=== PATIENT | female | born 1955 | race Asian ===

== ENCOUNTER 2016-11-07 11:11 | Inpatient (IN) | payer MEDICAID ==
[~2016-11-07] VITALS: Ht 154.9 cm; Wt 58.3 kg
--- NOTE | 2016-11-07 11:15 | NUR ---
PT BIB GUEST LAUNDRY ATTENDANT TO ER BED 14. WAS RECENTLY DISCHARGE AT [facility]. GUEST LAUNDRY ATTENDANT NOT COMFORTABLE LEAVING PT AT HOME SINCE PT LEAVES ALONE AND IS UNABLE TO TAKE CARE OF SELF. VSS. AWAITING MD HYDE.
--- NOTE | 2016-11-07 12:20 | NUR ---
PT TO RADIOLOGY FOR HEAD CT SCAN VIA WHEELCHAIR.
[2016-11-07] MEDS ORDERED: IV NS 0.9% 1,000 ML BAG IV ONE (12:30)
[2016-11-07 12:44] LABS: BASOPHILS # (AUTO) 0.1 /CMM (0.0-0.2); BASOPHILS % (AUTO) 0.8 % (0.0-2.0); EOSINOPHILS # (AUTO) 0.1 /CMM (0.0-0.7); EOSINOPHILS % (AUTO) 1.2 % (0.0-6.0); HEMATOCRIT 42 % (33-45); HEMOGLOBIN 14.1 g/dL (11.5-14.8); LYMPHOCYTES # (AUTO) 1.4 /CMM (0.8-4.8); LYMPHOCYTES % (AUTO) 19.7 % (20.0-44.0); MEAN CORPUSCULAR HEMOGLOBIN 29 PG (26.0-33.0); MEAN CORPUSCULAR HGB CONC 33 g/dl (31.0-36.0); MEAN CORPUSCULAR VOLUME 88 fL (82-100); MONOCYTES # (AUTO) 0.3 /CMM (0.1-1.30); NEUTROPHILS % (AUTO) 73.3 % (43.0-81.0); PLATELET COUNT (AUTO) 376 /CMM (150-450); RED BLOOD CELL COUNT(AUTO) 4.83 MIL/uL (4.0-5.2); WHITE BLOOD COUNT (AUTO) 6.9 K/uL (4.3-11.0)
[2016-11-07 12:57] LABS: INR 0.96 (0.87-1.13)
[2016-11-07 13:00] LABS: ALANINE AMINOTRANSFERASE 17 U/L (12-78); ALBUMIN 3.5 g/dL (3.4-5.0); ALKALINE PHOSPHATASE 69 U/L (46-116); ASPARTATE AMINOTRANSFERASE 17 U/L (15-37); BILIRUBIN,DIRECT 0.1 mg/dL (0.0-0.2); BILIRUBIN,TOTAL 0.5 mg/dL (0.2-1.0); CALCIUM, SERUM 9.1 mg/dL (8.5-10.1); CARBON DIOXIDE 27 mmol/L (21-32); CHLORIDE 102 mmol/L (98-107); CREATININE 0.7 mg/dL (0.6-1.3); GLUCOSE 134 mg/dL (74-106); POTASSIUM 4.1 mmol/L (3.5-5.1); SODIUM SERUM 138 mmol/L (136-145); TOTAL PROTEIN, SERUM 7.5 g/dL (6.4-8.2); UREA NITROGEN, BLOOD 18 mg/dL (7-18)
[2016-11-07 13:02] LABS: ALCOHOL, BLOOD < 3 mg/dL (0-0); TROPONIN I < 0.017 ng/mL (0.00-0.056)
--- NOTE | 2016-11-07 13:13 | NUR ---
dr. ball at bedside
[2016-11-07] MEDS ORDERED: OLANZAPINE 10 MG VIAL IM ONE (13:46)
--- NOTE | 2016-11-07 13:50 | NUR ---
pt is agitated trying to pull out iv. dr ball made aware. zyprexia 10mg im given. lt thigh per ermd verbal order.
[2016-11-07 14:12] LABS: THYROID STIMULATING HORMONE 0.888 uIU/mL (0.358-3.74)
[2016-11-07 14:16] LABS: BILIRUBIN,URINE Negative (NEGATIVE); BLOOD, URINE Large Ery/uL (NEGATIVE); COLOR,URINE Yellow (YELLOW); KETONES,URINE Negative (NEGATIVE); LEUKOCYTE ESTERASE ,URINE Negative (NEGATIVE); NITRITE, URINE Negative (NEGATIVE); PROTEIN,URINE Negative (NEGATIVE); UGLUCOSE Negative (NEGATIVE); UROBILINOGEN,URINE 0.2 EU/dL (0.2)
[2016-11-07 14:21] LABS: APPEARANCE,URINE Hazy (CLEAR)
--- NOTE | 2016-11-07 14:25 | NUR ---
CALLED ART GREENS CUTTER, HE SAID HE WOULD COME.
[2016-11-07 14:26] LABS: BACTERIA,URINE None seen /HPF (None Seen); RBC,URINE 21-50 /HPF (0-2); SQUAMOUS EPITHELIAL CELL,UR Few /HPF (None Seen); URINE AMORPHOUS PHOSPHATES Few /HPF (None Seen); WBC,URINE 0-3 /HPF (0-3)
--- NOTE | 2016-11-07 14:56 | NUR ---
ART CHEMISTRY LABORATORY TECHNICIAN AT BEDSIDE FOR EVAL.
--- NOTE | 2016-11-07 15:56 | NUR ---
CALLED [employer] INDUSTRIAL ROOFER WAS PAGED.
--- NOTE | 2016-11-07 16:46 | NUR ---
REPORT GIVEN TO ORQUIDEA. PT AWAITING TRANSFER TO FLOOR.
--- NOTE | 2016-11-07 16:52 | NUR ---
REPORT RECEIVED FROM ER
--- NOTE | 2016-11-07 17:25 | NUR ---
PATIENT ARRIVED TO UNIT
--- NOTE | 2016-11-07 17:45 | NUR ---
DR MATHEW NOTIFIED THAT PATIENT ARRIVED TO UNIT. WAITING MD ORDERS
[2016-11-07 18:02] VITALS: BP 118/75
--- NOTE | 2016-11-07 18:03 | NUR ---
PATIENT REMOVED HER IV
--- NOTE | 2016-11-07 18:04 | NUR ---
RN ADMITTING NOTES PATIENT ARRIVED TO UNIT VIA A WHEELCHAIR. PATIENT WAS CLEANED AND DRESSED WITH A GOWN. 1:1 SITTER FOR SAFETY. BELONGING LIST COMPLETED. VITAL SINGS WNL, REFER TO VITAL SIGN FLOWCHART. NO SIGNS AND SYMPTOMS OF DISTRESS. PATIENT PULLED OUT HER IV. WILL ATTEMPT TO START A NEW IV SITE. PATIENT IS MUMBLING WORD AND GARBLED. DISORGANIZED SPEECH. UNABLE TO OBTAIN HISTORY FROM PATIENT. I TRIED TO GET A HOLD OF THE ACCOUNTING SOFTWARE SPECIALIST THAT BROUGHT THE PATIENT TO THE HOSPITAL BUT SHE DIDN'T ANSER: MIRTA BAR AT [phone]. WILL ENDORSE TO HOSPICE PLAN ADMINISTRATOR NURSE.
--- NOTE | 2016-11-07 18:23 | NUR ---
NEW IV STARTED. RIGHT FOREARM 22G.
--- NOTE | 2016-11-07 18:23 | NUR ---
PICTURES WERE TAKEN FROM HER FEET. PATIENT REFUSED TO REMOVE UNDERWEAR AND SKIRT. UNABLE TO ASSESS BUTTOCKS AND SACRAL AREA
[2016-11-07] MEDS ORDERED: ACETAMINOPHEN 325 MG TABLET PO PRN (18:30)
[2016-11-07] MEDS ORDERED: ONDANSETRON HCL/PF 4 MG/2 ML VIAL IVP PRN (18:30)
[2016-11-07] MEDS ORDERED: MAGNESIUM HYDROXIDE 30 ML UDC PO PRN (18:30)
[2016-11-07] MEDS ORDERED: MAG HYDROX/AL HYDROX/SIMETH 30 ML UDC PO PRN (18:30)
[2016-11-07] MEDS ORDERED: Z GUARD REMEDY 2 OZ OINT TP PRN (18:30)
[2016-11-07] MEDS: IV NS 0.9% 1,000 ML IV PRN (18:49)
--- NOTE | 2016-11-07 19:18 | NUR ---
RN CLOSING NOTES ENDORSED TO TRIMMING ASSEMBLER NURSE FOR NORI. PATIENT IS IN BED, ALERT AND ORIENTED TO SELF ONLY. 1:1 SITTER AT BEDSIDE FOR SAFETY. IV SITE IS PATENT AND INTACT, CURRENTLY RUNNING FLUID AT 75ML/HR. ALL NURSING CARE PROVIDED. PATIENT KEPT CLEAN AND DRY. BED IN LOW POSITION, LOCKED AND TWO SIDE RAILS ARE UP. CALL LIGHT IS WITHIN REACH. NO SIGNS AND SYMPTOMS OF DISTRESS. DENIED PAIN.
--- NOTE | 2016-11-07 19:30 | NUR ---
MS RN NOTE RECEIVED PATIENT ASLEEP IN BED. EASILY AROUSABLE. NO RESPIRATORY DISTRESS OR SOB NOTED. NO S/S OF PAIN OR DISCOMFORT. IV SITE TO RFA INTACT WITH FLUIDS RUNNING ORDERED. WILL CALL [facility] FOR MEDS. BED LOCKED AND IN LOWEST POSITION, SIDE RAILS UP, CALL LIGHT WITHIN REACH. WILL CONTINUE TO MONITOR.
--- NOTE | 2016-11-07 19:37 | NUR ---
MS RN NOTE CALLED [facility] FOR PATIENTS MEDS. UNABLE TO OBTAIN AT THIS TIME. WAS TOLD TO CALL BACK IN AM.
[2016-11-07 20:00] VITALS: BP 119/61
--- NOTE | 2016-11-08 06:12 | NUR ---
MS RN NOTE PATIENT STABLE. ASLEEP IN BED. NO RESPIRATORY DISTRESS OR SOB NOTED. NO S/S OF PAIN OR DISCOMFORT. ALL NEEDS MET AND ATTENDED TO. WILL ENDORSE TO DAY SHIFT FOR NORI.
[2016-11-08 06:49] LABS: BASOPHILS % (AUTO) 0.5 % (0.0-2.0); EOSINOPHILS # (AUTO) 0.2 /CMM (0.0-0.7); EOSINOPHILS % (AUTO) 2.9 % (0.0-6.0); HEMATOCRIT 40 % (33-45); HEMOGLOBIN 12.9 g/dL (11.5-14.8); LYMPHOCYTES # (AUTO) 1.3 /CMM (0.8-4.8); LYMPHOCYTES % (AUTO) 22.6 % (20.0-44.0); MEAN CORPUSCULAR HEMOGLOBIN 29 PG (26.0-33.0); MEAN CORPUSCULAR HGB CONC 32 g/dl (31.0-36.0); MEAN CORPUSCULAR VOLUME 90 fL (82-100); MONOCYTES # (AUTO) 0.4 /CMM (0.1-1.30); MONOCYTES % (AUTO) 7.6 % (2.0-12.0); NEUTROPHILS # (AUTO) 3.8 /CMM (1.8-8.9); NEUTROPHILS % (AUTO) 66.4 % (43.0-81.0); PLATELET COUNT (AUTO) 310 /CMM (150-450); RDW COEFFICIENT OF VARIATION 13.8 (11.5-15.0); RED BLOOD CELL COUNT(AUTO) 4.49 MIL/uL (4.0-5.2); WHITE BLOOD COUNT (AUTO) 5.7 K/uL (4.3-11.0)
--- NOTE | 2016-11-08 07:15 | NUR ---
RN NOTES PT IS IN BED, SLEEPING COMFORTABLY. PT ON RA, RESPIRATIONS ARE EVEN AND UNLABORED. IV ON RFA INTACT AND PATENT, RUNNING NS @75 ML/HR. SAFETY MEASURES ARE IN PLACE. CALL LIGHT IS IN REACH. WILL CONTINUE TO MONITOR.
[2016-11-08 07:28] LABS: CALCIUM, SERUM 8.3 mg/dL (8.5-10.1); CREATININE 0.5 mg/dL (0.6-1.3); MAGNESIUM 2.3 mg/dL (1.8-2.4); PHOSPHORUS 3.5 mg/dL (2.5-4.9); POTASSIUM 3.9 mmol/L (3.5-5.1); THYROID STIMULATING HORMONE 1.055 uIU/mL (0.358-3.74)
[2016-11-08] MEDS: PANTOPRAZOLE 40 MG TABLET.DR PO SCH (07:51)
[2016-11-08] MEDS: IV NS 0.9% 1,000 ML IV PRN ×2 (07:53→22:54)
[2016-11-08 08:00] VITALS: BP 125/69
--- NOTE | 2016-11-08 10:58 | NUR ---
RADHA and guest services associate met with pt. bedside. Pt. is alert and oriented x1. Pt. appears confused, has disorganized thoughts and is unable to provide much information regarding her address. Pt. does state that her parents reside in [facility] and she hates her mom. Per crisis medical billing and coding instructor Bryn Rodriguez's notes dated 11/07/16, , pt. has a lining caser Dayana GENAO from [facility] [place] cell [phone]. Patient was discharged from [facility] psychiatric today after a two week stay. Patient appears to have a history of Schizophrenia and possibly dementia. Patient lives alone on subsidized housing in [place] but is unable to provide any address. Psychiatrist Dr. Ley assessed patient,and will provide psychiatric stabilization by administrating appropriate psychiatric medication. RADHA left a voicemail message for pt's lining caser Dayana Stevens [phone] requesting a call back.
[2016-11-08] MEDS: BENZTROPINE MESYLATE (1 MG) 1 MG TABLET PO SCH ×2 (11:05→16:14)
[2016-11-08] MEDS: risperiDONE 1 MG TABLET PO SCH ×2 (11:05→16:14)
[2016-11-08 16:00] VITALS: BP 118/76
--- NOTE | 2016-11-08 19:20 | NUR ---
RN NOTES PT IS SITTING ON THE EDGE OF THE BED. PT ON RA, RESPIRATIONS ARE EVEN AND UNLABORED. IV WAS PULLED ON AT 1650. ALL MEDS WERE GIVEN ORDERED. SAFETY MEASURES ARE IN PLACE, CALL LIGHT IS IN REACH. WILL ENDORSE TO REGULATORY TECHNICIAN RN FOR CONTINUITY OF CARE.
--- NOTE | 2016-11-08 19:30 | NUR ---
MS RN NOTES RECEIVED LAYING COMFORTABLY ON BED,A/O X 1,CONFUSED,PULLED OUT HER IV.SITTER AT BEDSIDE.WILL CONTINUE TO MONITOR STATUS.
--- NOTE | 2016-11-08 19:45 | NUR ---
MS RN NOTES NEW IV ACCESS PLACE ON RIGHT WRIST # 22,NS AT 75 ML/HR RATE CONTINUE INFUSING ORDERED.
[2016-11-08 20:00] VITALS: BP 110/70
[2016-11-08 20:08] VITALS: BP 110/70
--- NOTE | 2016-11-09 06:14 | NUR ---
MS RN NOTES A/O X1,CONFUSED,TRIED TO PULL OUT IV TUBING,SITTER AT BEDSIDE,NOTED UTERINE PROLAPSED.IVF INFUSING.NO FALL/INJURY NOTED.WILL ENDORSE TO DAY NURSE FOR NORI.
--- NOTE | 2016-11-09 07:20 | NUR ---
RN NOTES PT IS AWAKE IN BED, RESTING COMFORTABLY WITH SITTER AT BEDSIDE. PT ON RA, RESPIRATIONS ARE EVEN AND UNLABORED. IV ON RIGHT WRIST, INTACT AND RUNNING NS @ 75ML/HR. SAFETY MEASURES ARE IN PLACE, CALL LIGHT IS IN REACH. WILL CONTINUE TO MONITOR.
[2016-11-09 08:00] VITALS: BP 137/90
[2016-11-09] MEDS: risperiDONE 1 MG TABLET PO SCH ×2 (08:19→16:13)
[2016-11-09] MEDS: BENZTROPINE MESYLATE (1 MG) 1 MG TABLET PO SCH ×2 (08:20→16:13)
[2016-11-09] MEDS: PANTOPRAZOLE 40 MG TABLET.DR PO SCH (08:20)
[2016-11-09] MEDS ORDERED: risperiDONE 1 MG TABLET PO ONE (10:30)
[2016-11-09] MEDS ORDERED: risperiDONE 1 MG TABLET ONE (10:39)
[2016-11-09] MEDS: IV NS 0.9% 1,000 ML IV PRN (15:03)
[2016-11-09 16:00] VITALS: BP 135/80
--- NOTE | 2016-11-09 19:24 | NUR ---
RN NOTES PT IS RESTING IN BED WITH SITTER AT BEDSIDE. PT ON RA, RESPIRATIONS ARE EVEN AND UNLABORED. IV ON RIGHT WRIST, INTACT AND PATENT, RUNNING NS @ 75ML/HR. ALL MEDS WERE GIVEN ORDERED. SKIN CARE PROVIDED. AMBULATED IN THE HALLWAY WITH SITTER. SAFETY MEASURES ARE IN PLACE, CALL LIGHT IS IN REACH. WILL ENDORSE TO TAPE FASTENER MACHINE OPERATOR RN FOR CONTINUITY OF CARE.
[2016-11-09 20:00] VITALS: BP 126/80
[2016-11-09] MEDS: ZOLPIDEM TARTRATE 5 MG TABLET PO PRN (22:29)
--- NOTE | 2016-11-10 06:29 | NUR ---
MS RN NOTES AWAKE & RESPONSIVE. NOT IN ANY DISTRESS. NO SOB NOTED. DENIES ANY PAIN OR DISCOMFORT AT THIS TIME. WITH IVF INFUSING WELL. AM CARE DONE. MONITORED ACCORDINGLY. CALL LIGHT WITHIN REACH. BED IN LOWEST POSITION. SR UP X 3 WITH BED ALARM ON FOR SAFETY. WILL ENDORSE TO NEXT SHIFT.
--- NOTE | 2016-11-10 07:15 | NUR ---
RN NOTES REPORT RECEIVED AT THE BEDSIDE. PATIENT IS SLEEPING. NO SOB OR DISTRESS NOTED AT THIS TIME. PATIENT DOES NOT APPEAR TO BE IN PAIN, NO FACIAL GRIMACE NOTED. PATIENT HAS BEEN REFUSING IV FLUIDS. BED IN A LOW POSITION, CALL LIGHT WITHIN PATIENT REACH, SITTER IS AT THE BEDSIDE, WILL CONTINUE TO MONITOR.
[2016-11-10 08:00] VITALS: BP 136/89
[2016-11-10] MEDS: risperiDONE 1 MG TABLET PO SCH ×4 (08:41→16:28)
[2016-11-10] MEDS: PANTOPRAZOLE 40 MG TABLET.DR PO SCH (08:42)
[2016-11-10] MEDS: BENZTROPINE MESYLATE (1 MG) 1 MG TABLET PO SCH ×2 (08:42→16:28)
--- NOTE | 2016-11-10 13:13 | NUR ---
RN NOTES HAD TO WASTE 1300 RISPERDAL. PATIENT REFUSED TO TAKE MEDICATION. PATIENT ALSO STILL REFUSING IV FLUIDS. WILL ATTEMPT AGAIN LATER.
[2016-11-10] MEDS ORDERED: RISP1TAB7 PO (13:41)
[2016-11-10 16:00] VITALS: BP 130/76
--- NOTE | 2016-11-10 18:59 | NUR ---
RN CLOSING NOTES NO SIGNIFICANT CHANGES IN PATIENT CONDITION THROUGHOUT THE SHIFT. NO SOB OR DISTRESS NOTED AT THIS TIME. PATIENT DENIES PAIN. FROM [facility], PATIENT TO BE DISCHARGED TOMORROW. BED IN A LOW POSITION, CALL LIGHT WITHIN PATIENT REACH, FAMILY AT THE BEDSIDE. WILL ENDORSE FOR NORI. Addendum: 11/10/16 at 1901 by RED PRINCE RN PATIENT REFUSED IV FLUIDS THROUGHOUT THE SHIFT. ORAL INTAKE GOOD.
[2016-11-10 20:00] VITALS: BP 125/76
--- NOTE | 2016-11-11 06:50 | NUR ---
MS RN NOTES AWAKE & RESPONSIVE. NOT IN ANY DISTRESS. NO SOB NOTED. DENIES ANY PAIN OR DISCOMFORT AT THIS TIME. PT REFUSING TO HAVE IV-HL. AM CARE DONE. MONITORED ACCORDINGLY. CALL LIGHT WITHIN REACH. BED IN LOWEST POSITION. SR UP X 3 WITH BED ALARM ON FOR SAFETY. WILL ENDORSE TO NEXT SHIFT.
[2016-11-11] MEDS: risperiDONE 1 MG TABLET PO SCH ×4 (08:24→22:00)
[2016-11-11] MEDS: BENZTROPINE MESYLATE (1 MG) 1 MG TABLET PO SCH ×2 (08:25→16:31)
[2016-11-11] MEDS: PANTOPRAZOLE 40 MG TABLET.DR PO SCH (08:25)
--- NOTE | 2016-11-11 08:31 | NUR ---
MS RN NOTES PT RECEIVED STABLE. NO APPARENT DISTRESS. PT IS RELAXED AND EATING BREAKFAST. BEDSIDE RAILS ARE LOWERED AND LOCKED. BEDSIDE RAILS ARE UP X2. WILL CONTINUE TO MONITOR.
--- NOTE | 2016-11-11 10:00 | NUR ---
MS RN NOTES PATIENT IS REFUSING IV FLUIDS. EDUCATED PATIENT FORGETFUL.
--- NOTE | 2016-11-11 12:14 | NUR ---
RADHA received a voicemail message from Essence watch caser at [facility] stating that they would like to work together with [facility] and [facility] to get pt. the needed care. RADHA informed watch caser Jose Manuel regarding Nila's phone call. Jose Manuel called Nila and left her a voicemail message requesting a call back.
--- NOTE | 2016-11-11 12:30 | NUR ---
MS RN NOTES ANOTHER MESSAGE TO CASE MANAGEMENT TO F.U ON DC PLANNING. NOTIFIED DR PORTER PENDING ANSWER FROM CM
--- NOTE | 2016-11-11 13:00 | NUR ---
MS RN NOTES NOTIFIED MD PATIENT APPEARS TO BE RESPONDING TO INTERNAL STIMULI AND TALKING ABOUT A BABY FAUN. MD AWARE NO NEW ORDERS AT THIS TIME
--- NOTE | 2016-11-11 15:00 | NUR ---
MS RN NOTES PATIENT IS REFUSING IV FLUIDS. EDUCATED PATIENT FORGETFUL.
--- NOTE | 2016-11-11 15:42 | NUR ---
MS RN NOTES SPOKE WITH MAHESH BEATER MACHINE OPERATOR AND HE UPDATED FACILITY WILL NOT ACCEPT PATIENT AND THEY WILL TRY ANOTHER. FOR NOW PATIENT WILL STAY. AWARE
--- NOTE | 2016-11-11 19:24 | NUR ---
MS RN CLOSING NOTES PATIENT IS RESTING IN BED. BEDSIDE RAILS ARE UP X2. BED IS LOCKED AND LOWERED. WILL ENDORSE CARE TO MANAGER PARTY NURSE FOR NORI.
--- NOTE | 2016-11-11 19:30 | NUR ---
MS RN OPENING NOTES: PATIENT IN BED, AOX1, CONFUSED. ON ROOM AIR, BREATHING EVEN AND UNLABORED. BREATH SOUDNS CLEAR TO AUSCULTATION. APPEARS CALM AND IN NO DISTRESS. NO IV ACCESS AT THIS TIME, WHEN ASKED IF IT IS OK TO HAVE A KYLAH[HERAL IV INSERTED, PATIENT WAS UNABLE TO ANSWER CORRECTLY, BUT ASKED FOR A GLOVE. PROVIDED FOR COMFORT AND SAFETY. BED IN LOWEST AND LOCKED POSITION, SIDERAILS UPX3. SITTER AT BEDSIDE. WILL CONT TO MONITOR
[2016-11-11 20:00] VITALS: BP 128/75
--- NOTE | 2016-11-11 22:00 | NUR ---
RN NOTES: UNABLE TO ADMINISTER PO RISPERDAL. PATIENT IS ASLEEP.
--- NOTE | 2016-11-12 06:27 | NUR ---
RN NOTES: PATIENT AGREED TO HAVE IV REINSERTED BY RAMSEY AGARWAL. NEW IV INSERTED AT LFA G22. RESTARTED IV FLUIDS.
--- NOTE | 2016-11-12 06:55 | NUR ---
MS RN CLOSING NOTES: PATIENT IN BED, AOX1, ON ROOM AIR, BREATHING EVEN AND UNLABORED. APPEARS CALM AND IN NO DISTRESS. WAS ABLE TO SLEEP WELL THROUGH NIGHT. PIV OVER LFA G22 INTACT AND INFUSING WELL WITH NS RUNNING AT 75 ML/HR. NO ACUTE CHANGE IN CONDITION NOTED THROUGH NIGHT. PROVIDED FOR COMFORT AND SAFETY. BED IN LOWEST AND LOCKED POSITION, SIDERAILS UPX3. BED ALARMS ON, SITTER AT BEDSIDE. WILL ENDORSE TO AM RN FOR NORI.
--- NOTE | 2016-11-12 07:05 | NUR ---
RN Initial Notes: Patient resting in bed. Patient alert oriented x1.Non-labored breathing noted on room air. No facial grimaces noted. IV site on LFA gauge 22 patent and intact. Bed in lowest locked position. Call light within reach. Sitter at bed side. Will continue to monitor.
[2016-11-12 08:00] VITALS: BP 119/79
[2016-11-12] MEDS: PANTOPRAZOLE 40 MG TABLET.DR PO SCH (08:16)
[2016-11-12] MEDS: MEMANTINE HCL 5 MG TABLET PO SCH ×2 (08:17→16:50)
[2016-11-12] MEDS: risperiDONE 1 MG TABLET PO SCH ×4 (08:17→21:23)
[2016-11-12] MEDS: BENZTROPINE MESYLATE (1 MG) 1 MG TABLET PO SCH ×2 (08:18→16:52)
[2016-11-12] MEDS: IV NS 0.9% 1,000 ML IV PRN ×2 (13:23→14:55)
[2016-11-12 16:00] VITALS: BP 136/69
--- NOTE | 2016-11-12 16:00 | NUR ---
RN Notes: Patient pulled out previous IV line. Peripheral IV, gauge 22, started on right forearm. Blood return noted and line flushed with saline. Patient denies burning at the site.
--- NOTE | 2016-11-12 19:25 | NUR ---
RN Closing Notes: Patient resting in bed. Patient alert oriented x1.Non-labored breathing noted on room air. No facial grimaces noted. IV site on LFA gauge 22 patent and intact. Bed in lowest locked position. Call light within reach. Sitter at bed side. During shift, patient kept clean and dry. Patient helped to turn and reposition every 2 hours. Endorsed to next shift
--- NOTE | 2016-11-12 19:30 | NUR ---
MS RN OPENING NOTES: PATIENT IN BED, AOX1, ON ROOM AIR, BREATHING EVEN AND UNLABORED. APPEARS CALM AND IN NO DISTRESS. PIV OVER RFA G22 INTACT AND INFUSING WELL WITH NS RUNNING AT 75 ML/HR. PROVIDED FOR COMFORT AND SAFETY. BED IN LOWEST AND LOCKED POSITION, SIDERAILS UP X2, SITTER AT BEDSIDE. WILL CONT TO MONITOR.
[2016-11-12 20:00] VITALS: BP 118/78
[2016-11-12 20:14] VITALS: BP 118/78
[2016-11-13] MEDS: IV NS 0.9% 1,000 ML IV PRN (04:05)
--- NOTE | 2016-11-13 06:26 | NUR ---
MS RN CLOSING NOTES: PATIENT IN BED, AOX1, ON ROOM AIR, BREATHING EVEN AND UNLABORED. APPEARS CALM AND IN NO DISTRESS. DID NOT VERBALIZE HAVING ANY VISUAL OR AUDITORY HALLUCINATION. PIV OVER RFA G22 INTACT AND INFUSING WELL WITH NS RUNNING AT 75 ML/HR. PROVIDED FOR COMFORT AND SAFETY. BED IN LOWEST AND LOCKED POSITION, SIDERAILS UPX2. SITTER AT BEDSIDE. WLL ENDORSE TO AM RN FOR NORI.
--- NOTE | 2016-11-13 07:35 | NUR ---
RN Initial Notes: Patient resting in bed. Patient alert oriented x1. Non-labored breathing on room air. IV site on right forearm patent and intact. Bed in lowest locked position. Call light within reach. Sitter at bedside. Will continue to monitor
[2016-11-13 08:00] VITALS: BP 116/75
[2016-11-13] MEDS: PANTOPRAZOLE 40 MG TABLET.DR PO SCH (08:30)
[2016-11-13] MEDS: MEMANTINE HCL 5 MG TABLET PO SCH ×2 (08:32→17:52)
[2016-11-13] MEDS: BENZTROPINE MESYLATE (1 MG) 1 MG TABLET PO SCH ×2 (08:32→17:53)
[2016-11-13] MEDS: risperiDONE 1 MG TABLET PO SCH ×4 (08:32→21:56)
--- NOTE | 2016-11-13 14:00 | NUR ---
RN Notes: Dr. Bryant ordered to discontinue the patient's IV access
[2016-11-13 16:00] VITALS: BP 132/80
--- NOTE | 2016-11-13 19:10 | NUR ---
RN Closing Notes: Patient resting in bed. Patient alert oriented x1. Non-labored breathing on room air. Bed in lowest locked position.Facial expressions indicate calmness. Call light within reach. Sitter at bedside. During shift, patient encouraged to turn and reposition every 2 hours. Patient kept clean and dry. Patient endorsed to next shift.
--- NOTE | 2016-11-13 19:30 | NUR ---
MS RN OPENING NOTES: PATIENT IN BED, AOX1, CONFUSED. APPEARS CALM AND IN NO DISTRESS. NO PIV AT THIS TIME, PER REPORT, EPIC SAID IT CAN BE D'DAYANA. PT HAS KEPT TAKING IT OFF. PROVIDED FOR COMFORT AND SAFETY. BED IN LOWEST AND LOCKED POSITION, SIDERAILS UPX3. SITTER AT BEDSIDE. WILL CONT TO MONITOR.
[2016-11-13 20:00] VITALS: BP 138/93
--- NOTE | 2016-11-14 05:21 | NUR ---
RN NOTES: PATIENT SEATED ON CHAIR, CALM, WRITING INCOHESIVE SENTENCES ON PAPER. PATIENT STATES THAT SHE HAS NOT HAD A BOWEL MOVEMENT FOR MONTHS. ADMINISTERED MOM PO. ENCOURAGED INCREASED FLUID INTAKE. WILL CONT TO MONITOR.
--- NOTE | 2016-11-14 06:45 | NUR ---
MS RN CLOSING NOTES: PATIENT IN BED, AOX1, ON ROOM AIR, BREATHING EVEN AND UNLABORED. APPEARS CALM AND IN NO DISTRESS. DUE MEDS GIVEN. PROVIDED FOR COMFORT AND SAFETY. SITTER AT BEDSIDE. NO ACUTE CHANGE IN CONDITION NOTED THROUGH SHIFT. WILL ENDORSE TO AM RN FOR NORI.
--- NOTE | 2016-11-14 07:20 | NUR ---
ms rn initial notes Received patient in bed, asleep, head of bed elevated, no SOB or distress noted. Sitter at bedside for constant monitoring. No IV access MD aware. On room air and tolerated well. Alert and oriented x 1 confused. Kept patient clean and comfortable in bed, call light with in patient reach, will continue to monitor accordingly.
[2016-11-14] MEDS: PANTOPRAZOLE 40 MG TABLET.DR PO SCH (07:49)
[2016-11-14 08:00] VITALS: BP_SYST 126; BP_SYST 138; BP_DIAS 78; BP_DIAS 93
[2016-11-14] MEDS: risperiDONE 1 MG TABLET PO SCH ×4 (08:57→22:13)
[2016-11-14] MEDS: BENZTROPINE MESYLATE (1 MG) 1 MG TABLET PO SCH ×2 (08:57→16:31)
[2016-11-14] MEDS: MEMANTINE HCL 5 MG TABLET PO SCH ×2 (08:57→16:32)
--- NOTE | 2016-11-14 12:27 | NUR ---
RADHA left a voicemail message for machine adjuster leader case trim at [facility] since she did not hear back from her. RADHA requested a call back to discuss discharge planning. RADHA left her phone number and machine adjuster leader case trim Jose Manuel's phone number and requested a call back.
[2016-11-14 16:00] VITALS: BP 128/82
--- NOTE | 2016-11-14 19:29 | NUR ---
ms rn closing notes All needs provided, attended, and anticipated. Endorsed to next shift RN to continue care.
--- NOTE | 2016-11-14 19:50 | NUR ---
MS RN NOTE: PATIENT RESTING IN BED, NO ACUTE DISTRESS NOTED. BREATHING EVEN AND UNLABORED, NO SOB NOTED. SITTER AT BEDSIDE. BED LOCKED AND IN LOWEST POSITION, CALL LIGHT IN REACH, WILL CONTINUE TO MONITOR.
[2016-11-14 20:00] VITALS: BP 128/76
[2016-11-14 20:08] VITALS: BP 128/76
--- NOTE | 2016-11-15 03:00 | NUR ---
MS RN NOTE: PATIENT SLEEPING IN BED, NO ACUTE DISTRESS NOTED. BREATHING EVEN AND UNLABORED, NO SOB NOTED. BED LOCKED AND IN LOWEST POSITION, CALL LIGHT IN REACH. WILL CONTINUE TO MONITOR.
--- NOTE | 2016-11-15 06:05 | NUR ---
MS RN NOTE: PATIENT RESTING IN BED, NO ACUTE DISTRESS NOTED. BREATHING EVEN AND UNLABORED, NO SOB NOTED. SITTER AT BEDSIDE. BED LOCKED AND IN LOWEST POSITION, CALL LIGHT IN REACH, WILL ENDORSE TO DAY NURSE TO CONTINUE WITH PLAN OF CARE.
--- NOTE | 2016-11-15 07:12 | NUR ---
ms rn initial notes Received patient in bed, asleep, head of bed elevated, no SOB or distress noted, on room air and tolerated well. Sitter at bedside for constant monitoring. No IV access MD aware. Kept patient clean and comfortable in bed, call light with in patient reach, will continue to monitor accordingly.
[2016-11-15] MEDS: PANTOPRAZOLE 40 MG TABLET.DR PO SCH (07:36)
[2016-11-15 08:00] VITALS: BP 124/93
[2016-11-15] MEDS: risperiDONE 1 MG TABLET PO SCH ×4 (08:50→21:55)
[2016-11-15] MEDS: BENZTROPINE MESYLATE (1 MG) 1 MG TABLET PO SCH ×2 (08:50→16:36)
[2016-11-15] MEDS: MEMANTINE HCL 5 MG TABLET PO SCH ×2 (08:50→16:36)
--- NOTE | 2016-11-15 11:09 | NUR ---
RADHA left a voicemail message for case management social worker Dayana Handy at [facility] returning RADHA's call. RADHA and Jose Manuel spoke to Dayana who informed us that she is applying for housing for pt. through [facility] who will have a placement for pt. Dayana to contact case management social worker Jose Manuel once placement is confirmed.
[2016-11-15 16:00] VITALS: BP 129/76
--- NOTE | 2016-11-15 19:12 | NUR ---
ms rn closing notes All needs provided, attended, and anticipated. Kept patient clean and comfortable in bed, call light with in patient reach, endorsed to next shift RN to continue care.
--- NOTE | 2016-11-15 19:30 | NUR ---
MS2/RN RECEIVE PATIENT SLEEPING, EASILY AROUSABLE, APPEAR COMFORTABLE, NO SIGNS OF DISTRESS NOTED, CALL LIGHT IN REACH. SITTER AT BEDSIDE. WILL MONITOR.
[2016-11-15 20:00] VITALS: BP 119/75
--- NOTE | 2016-11-15 21:58 | NUR ---
MS2/RN PATIENT IS AWAKE AT THIS TIME, ORIENTED TO FIRST NAME ONLY. UNABLE TO STATE CLARA LAST NAME, CONFUSED, CALM AND COMFORTABLE, NO C/O PAIN, NO DISTRESS NOTED, WILL MONITOR.
[2016-11-16 08:00] VITALS: BP 124/78
--- NOTE | 2016-11-16 08:00 | NUR ---
MS RN AM NOTES: PATIENT IN BED, AOX1, CONFUSED. APPEARS CALM,DENYING PAIN AND IN NO DISTRESS. NO IV HEPLOCK -EPIC MD AWARE. PT KEEPS TAKING IT OFF. PROVIDED FOR COMFORT AND SAFETY. BED IN LOWEST AND LOCKED POSITION, SIDERAILS UPX3. SITTER AT BEDSIDE. WILL CONT TO MONITOR.
[2016-11-16] MEDS: MEMANTINE HCL 5 MG TABLET PO SCH ×2 (09:01→18:22)
[2016-11-16] MEDS: PANTOPRAZOLE 40 MG TABLET.DR PO SCH (09:01)
[2016-11-16] MEDS: BENZTROPINE MESYLATE (1 MG) 1 MG TABLET PO SCH ×2 (09:01→18:21)
[2016-11-16] MEDS: risperiDONE 1 MG TABLET PO SCH ×4 (09:01→21:52)
[2016-11-16 16:00] VITALS: BP 126/82
--- NOTE | 2016-11-16 19:00 | NUR ---
PT WAS MOVED TO ROOM 205-1.PT DENIES ANY PAIN OR DISTRESS.WITH 1:1 SITTER.WITH STABLE V/S.
[2016-11-16 20:05] VITALS: BP 150/91
--- NOTE | 2016-11-17 | NUR ---
MS2/RN PT. IS SLEEPING AT THIS TIME, AROUSABLE, APPEAR COMFORTABLE, NO DISTRESS NOTED, WILL CONTINUE TO MONITOR..
--- NOTE | 2016-11-17 06:16 | NUR ---
MS2/RN PATIENT IS SLEEPING AT THIS TIME, AROUSABLE, APPEAR COMFORTABLE, NO DISTRESS NOTED, CALL LIGHT IN REACH. ALL NEEDS ATTENDED AT THIS TIME. WILL CONTINUE TO MONITOR.
[2016-11-17 08:00] VITALS: BP 120/80
--- NOTE | 2016-11-17 08:00 | NUR ---
MS RN AM NOTES: PATIENT IN BED, AOX1, CONFUSED.WITH OCCASIONAL RESTLESSNESS-GETTING OOB AND GOING BACK REPEATEDLY SEVERAL TIMES ,DENYING PAIN AND IN NO DISTRESS. NO IV HEPLOCK -EPIC AWARE. PT KEEPS TAKING IT OFF. PROVIDED FOR COMFORT AND SAFETY. BED IN LOWEST AND LOCKED POSITION, SIDERAILS UPX3. SITTER AT BEDSIDE. WILL CONT TO MONITOR.
[2016-11-17] MEDS: risperiDONE 1 MG TABLET PO SCH ×4 (08:19→21:21)
[2016-11-17] MEDS: BENZTROPINE MESYLATE (1 MG) 1 MG TABLET PO SCH ×2 (08:19→18:23)
[2016-11-17] MEDS: PANTOPRAZOLE 40 MG TABLET.DR PO SCH (08:19)
[2016-11-17] MEDS: MEMANTINE HCL 5 MG TABLET PO SCH ×2 (08:19→18:23)
[2016-11-17 16:00] VITALS: BP 141/82
[2016-11-17] MEDS: HYDROCODONE/APAP 5/325MG 1 EACH TABLET PO PRN (18:23)
--- NOTE | 2016-11-17 18:43 | NUR ---
PT RESTING IN BED WITH 1:1 SITTER AT BEDSIDE.WITH ON/OFF RESTLESSNESS NOTED.WENT TO THE TOILET SEVERAL TIMES.MONITORED FOR SAFETY.
--- NOTE | 2016-11-17 19:17 | NUR ---
RN OPEN NOTES RECEIVED PATIENT AWAKE IN BED WITH SITTER AT BEDSIDE. A/O X1. NO SIGNS OF DISTRESS OR DISCOMFORT. BREATHING EVEN AND UNLABORED. NO IV ACCESS AT THIS TIME. BED IN LOW LOCKED POSITION WITH SIDE RAILS X2. CALL LIGHT WITHIN REACH. WILL CONTINUE TO MONITOR.
[2016-11-17 20:00] VITALS: BP_SYST 142; BP_DIAS 48; BP_DIAS 87
--- NOTE | 2016-11-18 06:51 | NUR ---
RN CLOSING NOTES PATIENT RESTING IN BED WITH SITTER AT BEDSIDE. A/O X1. NO SIGNS OF DISTRESS OR DISCOMFORT. BREATHING EVEN AND UNLABORED. NO IV ACCESS AT THIS TIME. ALL NEEDS MET. NO SIGNIFICANT CHANGES THROUGH THE NIGHT. BED IN LOW LOCKED POSITION WITH SIDE RAILS X2. CALL LIGHT WITHIN REACH. WILL ENDORSE TO AM SHIFT FOR NORI.
[2016-11-18 08:00] VITALS: BP 126/81
[2016-11-18] MEDS: BENZTROPINE MESYLATE (1 MG) 1 MG TABLET PO SCH ×2 (09:40→17:51)
[2016-11-18] MEDS: PANTOPRAZOLE 40 MG TABLET.DR PO SCH (09:40)
[2016-11-18] MEDS: risperiDONE 1 MG TABLET PO SCH ×4 (09:40→22:40)
[2016-11-18] MEDS: MEMANTINE HCL 5 MG TABLET PO SCH ×2 (09:40→17:51)
[2016-11-18] MEDS: HYDROCODONE/APAP 5/325MG 1 EACH TABLET PO PRN (11:29)
[2016-11-18 15:48] VITALS: BP 136/88
--- NOTE | 2016-11-18 17:09 | NUR ---
PT'S UTERINE PROLAPSE IS PROTRUDING -NOTIFIED DR PORTER WHO IS AWARE OF IT SAYING IT'S CHRONIC.NO NEED FOR SMOOTH PLATER CONSULT SAYING OUTPATIENT.
--- NOTE | 2016-11-18 17:10 | NUR ---
PT IS SO RESTLESS GETTING IN AND OUT OF BED AND WENT TO THE TOILET 7X DURING MY SHIFT.WALKED PT ALONG THE HALLWAY WITH SITTER SEVERAL TIMES.STILL; CONTINUES TO BE RESTLESS.NOTIFIED DR RIVERA WITH ORDERS MADE AND CARRIED OUT.
[2016-11-18] MEDS ORDERED: LORAZEPAM 0.5 MG TABLET PO PRN (17:30)
[2016-11-18] MEDS: LORAZEPAM 0.5 MG TABLET PO PRN (19:18)
[2016-11-18] MEDS ORDERED: risperiDONE 1 MG TABLET PO ONE (19:30)
--- NOTE | 2016-11-18 19:40 | NUR ---
RN OPENING NOTES RECEIVED REPORT FROM DAYSHIFT RAMSEY JOHNSON. FOUND Pt AWAKE, RESTING IN BED. NO S/S OF ACUTE DISTRESS OR SOB NOTED. Pt IS A/OX1, CONFUSED. WITH 1:1 SITTER. NO IV ACCESS, MD AWARE. SAFETY MEASURES IN PLACE. BED LOW, LOCKED, HOB ELEVATED, SIDE RAILS UP, CALL LIGHT AND BEDSIDE TABLE WITHIN REACH. WILL CONTINUE TO MONITOR Pt THROUGHOUT THE NIGHT FOR SAFETY.
[2016-11-18 20:00] VITALS: BP 130/79
[2016-11-18 20:24] VITALS: BP 130/79
[2016-11-19] MEDS: LORAZEPAM 0.5 MG TABLET PO PRN (05:23)
--- NOTE | 2016-11-19 06:45 | NUR ---
RN CLOSING NOTES NO SIGNIFICANT CHANGES NOTED DURING THE NIGHT. NO S/S OF ACUTE DISTRESS OR SOB NOTED DURING SHIFT. ALL NEEDS MET AND ATTENDED TO. SAFETY MEASURES IN PLACE. WILL ENDORSE TO DAYSHIFT RN FOR Pt's NORI.
--- NOTE | 2016-11-19 07:15 | NUR ---
MS RN OPENING NOTES RECEIVED PT FROM NIGHTSHIFT NURSE IN STABLE CONDITION. PT IS A.O X1, RESTLESS, AND CONFUSED. NO SOB OR SIGNS OF DISTRESS NOTED. BREATHING IS EVEN AND UNLABORED. PT HAS NO IV ACCESS, MD IS AWARE. BED IN LOW LOCKED POSITION, SIDE RAILS UP X3, CALL LIGHT WITHIN REACH, 1:1 SITTER AT BEDSIDE. WILL CONTINUE TO MONITOR.
[2016-11-19 08:09] VITALS: BP 105/51
[2016-11-19] MEDS: BENZTROPINE MESYLATE (1 MG) 1 MG TABLET PO SCH ×2 (08:52→17:10)
[2016-11-19] MEDS: MEMANTINE HCL 5 MG TABLET PO SCH ×2 (08:52→17:10)
[2016-11-19] MEDS: risperiDONE 1 MG TABLET PO SCH ×4 (08:52→21:55)
[2016-11-19] MEDS: PANTOPRAZOLE 40 MG TABLET.DR PO SCH (08:52)
[2016-11-19 16:09] VITALS: BP 159/80
--- NOTE | 2016-11-19 18:55 | NUR ---
MS RN CLOSING NOTES ALL DUE MEDS GIVEN AND ORDERS CARRIED OUT ACCORDINGLY. NO ACUTE CHANGES IN CONDITION SINCE START OF SHIFT. SITTER REMAINS AT BEDSIDE. WILL ENDORSE TO NIGHTSHIFT NURSE FOR NORI
--- NOTE | 2016-11-19 19:50 | NUR ---
rn initial notes: received report from rn afsatu, pt in bed, awake, a/o x1 confused pt, sitter at bed side, no facial grimace noted, registration even and unlabored, pt has no iv access, md aware, as pt pulled out iv so many times. safety precautions for fall initiated call light in reach, will continue to monitor
[2016-11-19 20:00] VITALS: BP_SYST 130; BP_SYST 134; BP_DIAS 52; BP_DIAS 73
--- NOTE | 2016-11-19 23:21 | NUR ---
rn notes: pt can be redirected, follow command, however there's episode she got restless go to the bathroom then back to bed, then ambulate in the hallway.
--- NOTE | 2016-11-20 04:00 | NUR ---
rn notes: seen pt sleeping, snoring, appears comfortable, not in any distress, sitter at bed side
--- NOTE | 2016-11-20 06:52 | NUR ---
rn closing notes: pt in bed, awake, remains a/o x1 cooperative and med complaint, no iv access md aware, vs remains stable, needs attended, awaiting for placement, safety precautions for fall remains engaged, call light in reach, will endorse to day rn for joey.
--- NOTE | 2016-11-20 07:16 | NUR ---
MS RN OPENING NOTES RECEIVED PT FROM NIGHTSHIFT NURSE IN STABLE CONDITION. PT IS SLEEPING COMFORTABLY IN BED AND EASILY AROUSABLE. PT IS A.O X1. NO SOB OR SIGNS OF DISTRESS NOTED. BREATHING IS EVEN AND UNLABORED. PT HAS NO IV ACCESS, MD IS AWARE. BED IN LOW LOCKED POSITION, SIDE RAILS UP X3, CALL LIGHT WITHIN REACH, 1:1 SITTER AT BEDSIDE. WILL CONTINUE TO MONITOR.
[2016-11-20 08:00] VITALS: BP 108/65
[2016-11-20] MEDS: MEMANTINE HCL 5 MG TABLET PO SCH ×2 (08:48→17:49)
[2016-11-20] MEDS: risperiDONE 1 MG TABLET PO SCH ×4 (08:49→22:00)
[2016-11-20] MEDS: BENZTROPINE MESYLATE (1 MG) 1 MG TABLET PO SCH ×2 (08:49→17:48)
[2016-11-20] MEDS: PANTOPRAZOLE 40 MG TABLET.DR PO SCH (08:49)
[2016-11-20 16:00] VITALS: BP 119/67
[2016-11-20 20:00] VITALS: BP 114/68
--- NOTE | 2016-11-20 20:00 | NUR ---
RN NOTES RECEIVED PT SLEEPING BUT AROUSABLE, SITTER AT BEDSIDE, A/OX1, CONFUSED, NO IV ACCESS-MD IS AWARE, SIDERIALS YPX2 CONTINUE TO MONITOR,
[2016-11-21 06:36] LABS: APPEARANCE,URINE SL CLOUDY (CLEAR); BASOPHILS % (AUTO) 0.4 % (0.0-2.0); BILIRUBIN,URINE NEGATIVE (NEGATIVE); BLOOD, URINE NEGATIVE Ery/uL (NEGATIVE); COLOR,URINE YELLOW (YELLOW); EOSINOPHILS # (AUTO) 0.1 /CMM (0.0-0.7); EOSINOPHILS % (AUTO) 1.6 % (0.0-6.0); HEMATOCRIT 45 % (33-45); HEMOGLOBIN 14.6 g/dL (11.5-14.8); KETONES,URINE NEGATIVE (NEGATIVE); LEUKOCYTE ESTERASE ,URINE 1+ (NEGATIVE); LYMPHOCYTES # (AUTO) 2.4 /CMM (0.8-4.8); LYMPHOCYTES % (AUTO) 29.9 % (20.0-44.0); MEAN CORPUSCULAR HEMOGLOBIN 29 PG (26.0-33.0); MEAN CORPUSCULAR HGB CONC 33 g/dl (31.0-36.0); MEAN CORPUSCULAR VOLUME 90 fL (82-100); MONOCYTES # (AUTO) 0.6 /CMM (0.1-1.30); MONOCYTES % (AUTO) 8.2 % (2.0-12.0); NEUTROPHILS # (AUTO) 4.7 /CMM (1.8-8.9); NEUTROPHILS % (AUTO) 59.9 % (43.0-81.0); NITRITE, URINE NEGATIVE (NEGATIVE); PLATELET COUNT (AUTO) 289 /CMM (150-450); PROTEIN,URINE NEGATIVE (NEGATIVE); RDW COEFFICIENT OF VARIATION 13.6 (11.5-15.0); RED BLOOD CELL COUNT(AUTO) 5.02 MIL/uL (4.0-5.2); UGLUCOSE NEGATIVE (NEGATIVE); UROBILINOGEN,URINE 0.2 EU/dL (0.2); WHITE BLOOD COUNT (AUTO) 7.9 K/uL (4.3-11.0)
[2016-11-21 07:00] LABS: ALBUMIN 3.5 g/dL (3.4-5.0); BILIRUBIN,TOTAL 0.7 mg/dL (0.2-1.0); CALCIUM, SERUM 8.9 mg/dL (8.5-10.1); CREATININE 0.8 mg/dL (0.6-1.3); POTASSIUM 4.2 mmol/L (3.5-5.1); TOTAL PROTEIN, SERUM 7.4 g/dL (6.4-8.2)
--- NOTE | 2016-11-21 07:00 | NUR ---
RN NOTES AWAKE, MORNING CARE RENDERED, DENIES PAIN, NO SOB, PT. NEEDS ATTENDED
--- NOTE | 2016-11-21 07:30 | NUR ---
MS/RN Patient received Patient received from nightman. Sitter remains at bedside as at risk of wondering off. Calm and cooperative, no behavior concerns. Will continue to monitor and ensure safety.
[2016-11-21 08:00] VITALS: BP 123/77
[2016-11-21] MEDS: BENZTROPINE MESYLATE (1 MG) 1 MG TABLET PO SCH ×2 (08:07→16:25)
[2016-11-21] MEDS: PANTOPRAZOLE 40 MG TABLET.DR PO SCH (08:07)
[2016-11-21] MEDS: risperiDONE 1 MG TABLET PO SCH ×4 (08:07→21:05)
[2016-11-21] MEDS: MEMANTINE HCL 5 MG TABLET PO SCH ×2 (08:07→16:25)
[2016-11-21 08:22] VITALS: BP 123/77
[2016-11-21 08:24] LABS: BACTERIA,URINE Few /HPF (None Seen); RBC,URINE NONE SEEN /HPF (0-2); SQUAMOUS EPITHELIAL CELL,UR Few /HPF (None Seen)
--- NOTE | 2016-11-21 08:31 | NUR ---
MS/RN Medications Morning medications administered as ordered.
--- NOTE | 2016-11-21 13:50 | NUR ---
MS/RN S/B Dr Ley Seen by Dr Ley - medications adjusted.
[2016-11-21 16:00] VITALS: BP 141/74
[2016-11-21 16:44] VITALS: BP 141/74
--- NOTE | 2016-11-21 18:07 | NUR ---
MS/RN End note Patient continues to remain restless, pacing in hallways, getting in and out of bed and frequently needing to go to and from bathroom without voiding however is easily redirectable. Sitter at bedside for safety, will endorse to jewel lathe operator.
[2016-11-21 20:00] VITALS: BP 106/76
--- NOTE | 2016-11-21 20:00 | NUR ---
RN NOTES RECEIVED PATIENT IN BED, ALERT AND ORIENTED X1, CALM AT THIS TIME, NO SOB, NO RESPIRATORY DISTRESS, SPO2 AT ROOM AIR 97%, NOT IN APPARENT PAIN, NO FACIAL GRIMACING, NO RESTLESSNESS. PATIENT HAS TENDENCY TO WANDER, ONE ON ONE SITTER AT THE BEDSIDE. MADE COMFORTABLE, CALL LIGHT WITHIN REACH.
--- NOTE | 2016-11-21 21:25 | NUR ---
RN NOTES PATIENT SPITS MEDICATION. ABLE TO COAX PATIENT TO SWALLOW MEDICATIONS BY MIXING WITH PUDDING AND KEPT GIVING MEDICATIONS REPEATEDLY UNTIL PATIENT SWALLOWS.
--- NOTE | 2016-11-21 21:32 | NUR ---
RN NOTES PATIENT GIVEN RISPERDAL 3 MG OR 3 TABS, TAKEN ONLY 2 TABS AND TOOK ANOTHER 1 MG ON TWO SEPARATE TIMES.
--- NOTE | 2016-11-22 06:48 | NUR ---
RN NOTES PATIENT RESTING COMFORTABLY IN BED, AROUSEABLE BY TOUCH, NO BEHAVIORAL DISTURBANCE DURING SHIFT, AMBULATES TO THE TOILET WITH SUPERVISION, KEPT SAFE AND COMFORTABLE, CALL LIGHT WITHIN REACH. ONE ON ONE SITTER AT THE BEDSIDE.
--- NOTE | 2016-11-22 07:30 | NUR ---
MS/RN Patient received Patient received from night clerk. Sitter at bedside as patient at risk of wondering off unit. No behavior concerns at this time, compliant with plan of care. Will continue to ensure safety.
[2016-11-22 08:00] VITALS: BP 140/65
[2016-11-22] MEDS: BENZTROPINE MESYLATE (1 MG) 1 MG TABLET PO SCH ×2 (08:09→16:44)
[2016-11-22] MEDS: MEMANTINE HCL 5 MG TABLET PO SCH ×2 (08:09→16:44)
[2016-11-22] MEDS: PANTOPRAZOLE 40 MG TABLET.DR PO SCH (08:09)
[2016-11-22] MEDS: risperiDONE 1 MG TABLET PO SCH ×3 (08:57→22:03)
--- NOTE | 2016-11-22 09:15 | NUR ---
MS/RN Medications Morning medications administered as ordered.
--- NOTE | 2016-11-22 14:40 | NUR ---
MS/RN Behavior Patient has remained in bed fr most of the day, compliant with medications.
[2016-11-22 16:05] VITALS: BP 135/80
--- NOTE | 2016-11-22 18:19 | NUR ---
MS/RN End note Seen by Dr Ley - changes made to medications. Patient has remained cooperative with plan of care. All needs attended. Will endorse to shift foreman.
[2016-11-22 20:00] VITALS: BP 129/88
[2016-11-22 20:03] VITALS: BP 129/88
--- NOTE | 2016-11-22 20:09 | NUR ---
RN NOTES PATIENT IN BED, ALERT AND ORIENTED X1, UNDERSTANDS LITTLE JAPANESE, WITH EPISODES OF RESTLESSNESS M/B GETTING OUT OF BED AND WANDERING. NO SOB, NO RESPIRATORY DISTRESS, NOT IN APPARENT PAIN, KEPT SAFE AND COMFORTABLE, ONE ON ONE SITTER AT THE BEDSIDE. WILL CONTINUE TO MONITOR.
[2016-11-22] MEDS: DONEPEZIL 5 MG TABLET PO SCH (22:03)
[2016-11-23] MEDS: LORAZEPAM 0.5 MG TABLET PO PRN (01:02)
--- NOTE | 2016-11-23 01:07 | NUR ---
RN NOTES PATIENT IS RESTLESS, GETTING OUT OF BED, WALKING WITHOUT PURPOSE, GIVEN ATIVAN 1MG PO. KEPT SAFE, SITTER AT THE BEDSIDE.
--- NOTE | 2016-11-23 05:45 | NUR ---
MS/RN NOTES RECEIVED REPORT FROM DANILO MUSTAFA. PT IS ASLEEP, ON ROOM AIR, BREATHING EVEN AND UNLABORED. NO S/S OF SOB OR DISTRESS. NO FACIAL GRIMACING OR SIGNS OF PAIN NOTED. NO IV SITE. BED IN LOW/LOCKED POSITION WITH CALL LIGHT IN REACH. SIDE RAILS UPX3 AND BED ALARM ON FOR SAFETY. SITTER AT BEDSIDE. WILL MONITOR
--- NOTE | 2016-11-23 05:50 | NUR ---
RN NOTES PATIENT IS RESTING COMFORTABLY IN BED, RESPIRATION EVEN AND UNLABORED, NO DISTRESS.
--- NOTE | 2016-11-23 05:54 | NUR ---
RN NOTES PATIENT TRANSFERRED TO [facility]– [place][note 2] IN GOOD AND STABLE CONDITION, NO DISTRESS, CALM AT THIS TIME.
[2016-11-23 06:00] VITALS: BP 127/79
--- NOTE | 2016-11-23 07:30 | NUR ---
RN OPENING NOTES RECEIVED PATIENT IN BED SLEEPING, AROUSES EASILY. A/O X 1-2, CONFUSED. ON ROOM AIR, NO S/S OF DISTRESS, NO SOB NOTED. NO S/S OF PAIN OR DISCOMFORT. NO IV SITE NOTED. SITTER AT BEDSIDE FOR SAFETY. BED IN LOWEST POSITION, LOCKED, SIDERAILS UP, CALL LIGHT IN REACH. WILL CONTINUE TO MONITOR ACCORDINGLY.
[2016-11-23 08:00] VITALS: BP 120/79
[2016-11-23 08:25] LABS: CALCIUM, SERUM 8.6 mg/dL (8.5-10.1); CREATININE 0.7 mg/dL (0.6-1.3); MAGNESIUM 2.1 mg/dL (1.8-2.4); PHOSPHORUS 3.7 mg/dL (2.5-4.9); POTASSIUM 3.8 mmol/L (3.5-5.1)
[2016-11-23 08:31] LABS: BASOPHILS % (AUTO) 0.3 % (0.0-2.0); EOSINOPHILS # (AUTO) 0.1 /CMM (0.0-0.7); EOSINOPHILS % (AUTO) 1.7 % (0.0-6.0); HEMATOCRIT 41 % (33-45); HEMOGLOBIN 13.6 g/dL (11.5-14.8); LYMPHOCYTES # (AUTO) 1.5 /CMM (0.8-4.8); LYMPHOCYTES % (AUTO) 20.2 % (20.0-44.0); MEAN CORPUSCULAR HEMOGLOBIN 29 PG (26.0-33.0); MEAN CORPUSCULAR HGB CONC 33 g/dl (31.0-36.0); MEAN CORPUSCULAR VOLUME 89 fL (82-100); MONOCYTES # (AUTO) 0.7 /CMM (0.1-1.30); NEUTROPHILS % (AUTO) 68.8 % (43.0-81.0); PLATELET COUNT (AUTO) 281 /CMM (150-450); RDW COEFFICIENT OF VARIATION 13.6 (11.5-15.0); WHITE BLOOD COUNT (AUTO) 7.2 K/uL (4.3-11.0)
[2016-11-23] MEDS: PANTOPRAZOLE 40 MG TABLET.DR PO SCH (08:51)
[2016-11-23] MEDS: risperiDONE 1 MG TABLET PO SCH ×3 (08:52→21:29)
[2016-11-23] MEDS: BENZTROPINE MESYLATE (1 MG) 1 MG TABLET PO SCH ×2 (08:52→17:40)
[2016-11-23] MEDS: MEMANTINE HCL 5 MG TABLET PO SCH ×2 (08:52→17:39)
[2016-11-23 13:00] VITALS: BP 120/70
[2016-11-23 16:00] VITALS: BP 116/75
--- NOTE | 2016-11-23 19:25 | NUR ---
RN CLOSING NOTES NO CHANGE IN PATIENT'S CONDITION, PATIENT IS AMBULATING IN THE UNIT ACCOMPANIED BY STRIPPER COLOR/SITTER. NO ACUTE DISTRESS, NO SOB NOTED. ALL NEEDS ATTENDED AND PROVIDED. KEPT PATIENT SAFE AND COMFORTABLE. ENDORSED TO NIGHT RN FOR NORI.
[2016-11-23 20:34] VITALS: BP 118/76
[2016-11-23] MEDS: DONEPEZIL 5 MG TABLET PO SCH (21:29)
--- NOTE | 2016-11-24 06:35 | NUR ---
MS RN NOTES AWAKE & RESPONSIVE. NOT IN ANY DISTRESS. NO SOB NOTED. DENIES ANY PAIN OR DISCOMFORT AT THIS TIME. WITH IVF INFUSING WELL. MONITORED ACCORDINGLY. CALL LIGHT WITHIN REACH. BED IN LOWEST POSITION. SR UP X 3 WITH BED ALARM ON FOR SAFETY. WILL ENDORSE TO NEXT SHIFT. Addendum: 11/24/16 at 0637 by ILSBET BUENO RN NO IVF AT THIS TIME. WITH SITTER AT BEDSIDE
--- NOTE | 2016-11-24 07:39 | NUR ---
MS/RN OPENING NOTE PATIENT RECEIVED IN BED IN STABLE CONDITION. A/O X 1 WITH EPISODES OF CONFUSION AND FORGETFULNESS. NO SIGNS OF ACUTE DISTRESS. NO COMPLAIN OF PAIN OR DISCOMFORT. SITTER AT BEDSIDE. ALL NEEDS ATTENDED TO. CALL LIGHT WITHIN REACH. WILL CONTINUE TO MONITOR TO ENSURE SAFETY.
[2016-11-24 08:03] LABS: CALCIUM, SERUM 9.1 mg/dL (8.5-10.1); CREATININE 0.6 mg/dL (0.6-1.3); POTASSIUM 3.8 mmol/L (3.5-5.1)
[2016-11-24] MEDS: MEMANTINE HCL 5 MG TABLET PO SCH ×2 (08:19→16:29)
[2016-11-24] MEDS: PANTOPRAZOLE 40 MG TABLET.DR PO SCH (08:19)
[2016-11-24] MEDS: BENZTROPINE MESYLATE (1 MG) 1 MG TABLET PO SCH ×2 (08:20→16:29)
[2016-11-24] MEDS: risperiDONE 1 MG TABLET PO SCH ×3 (08:21→21:13)
--- NOTE | 2016-11-24 13:30 | NUR ---
MS/RN SEEN BY DR MATHEW PATIENT SEEN BY DR MATHEW WITH ORDERS TO BE DISCHARGE TODAY
--- NOTE | 2016-11-24 18:26 | NUR ---
MS/RN CLOSING NOTE PATIENT AWAKE IN BED. A/O X 1. NO SIGNS OF ACUTE DISTRESS. NO COMPLAIN OF PAIN OR DISCOMFORT. ORDER TO DISCHARGE TODAY, PER PRODUCT EXAMINER STILL AWAITING FOR PLACEMENT. SITTER AT BEDSIDE. ALL NEEDS ATTENDED TO. CALL LIGHT WITHIN REACH. WILL ENDORSE TO NEXT SHIFT FOR CONTINUITY OF CARE.
[2016-11-24 19:07] VITALS: BP 128/81
[2016-11-24 20:00] VITALS: BP 145/82
[2016-11-24] MEDS: DONEPEZIL 5 MG TABLET PO SCH (21:13)
[2016-11-24] MEDS: ZOLPIDEM TARTRATE 5 MG TABLET PO PRN (21:13)
--- NOTE | 2016-11-25 06:18 | NUR ---
MS RN NOTES AWAKE & RESPONSIVE. NOT IN ANY DISTRESS. NO SOB NOTED. DENIES ANY PAIN OR DISCOMFORT AT THIS TIME. AM CARE DONE. MONITORED ACCORDINGLY. WITH SITTER AT BEDSIDE. CALL LIGHT WITHIN REACH. BED IN LOWEST POSITION. SR UP X 3 WITH BED ALARM ON FOR SAFETY. WILL ENDORSE TO NEXT SHIFT.
--- NOTE | 2016-11-25 07:24 | NUR ---
MS/RN OPENING NOTE PATIENT RECEIVED WALKING IN HALLWAY ASSISTED BY 1:1 SITTER. A/O X 1. NO SIGNS OF ACUTE DISTRESS. NO COMPLAIN OF PAIN OR DISCOMFORT. ALL NEEDS ATTENDED TO. SITTER WITH PATIENT AT ALL TIMES. CALL LIGHT WITHIN REACH. WILL CONTINUE TO MONITOR TO ENSURE SAFETY.
[2016-11-25] MEDS: PANTOPRAZOLE 40 MG TABLET.DR PO SCH (08:05)
[2016-11-25] MEDS: MEMANTINE HCL 5 MG TABLET PO SCH (08:05)
[2016-11-25] MEDS: BENZTROPINE MESYLATE (1 MG) 1 MG TABLET PO SCH (08:05)
[2016-11-25] MEDS: risperiDONE 1 MG TABLET PO SCH ×2 (08:05→12:39)
[2016-11-25 10:53] VITALS: BP 124/75
--- NOTE | 2016-11-25 13:37 | NUR ---
MS/RN SEEN BY DR RIVERA PATIENT SEEN BY DR RIVERA WITH NO ORDERS AT THIS TIME.
--- NOTE | 2016-11-25 15:50 | NUR ---
MS/RN SEEN BY DR MATHEW PATIENT SEEN BY DR MATHEW TO BE DC SN[facility]
--- NOTE | 2016-11-25 16:21 | NUR ---
MS/IRRIGATION LABORER PATIENT DISCHARGE TO [facility]. LEFT IN STABLE CONDITION ACCOMPANIED BY A MASTER LAY OUT SPECIALIST. A/O X 1. NO SIGNS OF ACUTE DISTRESS. NO COMPLAIN OF PAIN OR DISCOMFORT. DISCHARGE INSTRUCTIONS AND EDUCATION PROVIDED AND SENT WITH PATIENT, PATIENT UNABLE TO COMPREHEND, ALL NEEDS ATTENDED TO. IV SITE AND NAME BAND REMOVED.
== END 2016-11-25 16:24 | DRG 52 ==
LOC: ER 11:13 → MEDSG2 16:40 → MED 11-23 06:08
PROVIDERS: ADMIT Internal Medicine; ATTEND Internal Medicine
DX: G93.41 Metabolic encephalopathy (principal); F20.9 Schizophrenia, unspecified; G30.9 Alzheimer's disease, unspecified; F01.50 Vascular dementia, unspecified severity, without behavioral disturbance, psychotic disturbance, mood disturbance, and anxiety; F02.80 Dementia in other diseases classified elsewhere, unspecified severity, without behavioral disturbance, psychotic disturbance, mood disturbance, and anxiety; E11.9 Type 2 diabetes mellitus without complications; E78.5 Hyperlipidemia, unspecified; F32.9 Major depressive disorder, single episode, unspecified; F29 Unspecified psychosis not due to a substance or known physiological condition
CPT/HCPCS: 36415; 70450-TC; 71010-TC; 80048-TC; 80053-TC; 80061-TC; 80076-TC; 80305; 81000-TC; 82746; 83540-TC; 83735-TC; 84100-TC; 84443-TC; 84484-TC; 85025-TC; 85730-TC; 87081-TC; 87086-TC; A4606; G0480; J3490; J7030; Z7610